=== PATIENT | male | born 1980 | race Hispanic/Latino ===

== ENCOUNTER 2017-07-05 11:30 | Emergency (ER) | payer SELFPAY ==
[2017-07-05] MEDS ORDERED: ZOFRAN IM ONE (12:12)
[2017-07-05] MEDS ORDERED: CARAFATE PO ONE (12:12)
--- NOTE | 2017-07-05 12:19 | XRay Report ---
ROUTINE CHEST, TWO VIEWS: HISTORY: Shortness of breath. The trachea, heart, mediastinal contour, lung lane and bony thorax are unremarkable. IMPRESSION: No acute cardiopulmonary process identified.
[2017-07-05] MEDS ORDERED: ZOFRAN IV ONE (12:30)
[2017-07-05 12:34] LABS: Basophils # (Auto) 0.1 K/mm3 (0.0-0.1); Basophils % (Auto) 0.4 % (0.0-1.8); Eosinophils % (Auto) 0.2 % (0.0-4.3); Hemoglobin 14.6 gm/dl (11.8-15.2); Lymphocytes # (Auto) 1.7 K/mm3 (1.2-5.4); Lymphocytes % (Auto) 10.9 % (13.4-35.0); Mean Corpuscular HGB Conc 34 % (32-34); Mean Corpuscular Hemoglobin 31 pg (28-32); Mean Corpuscular Volume 91 fl (84-94); Monocytes # (Auto) 0.5 K/mm3 (0.0-0.8); Monocytes % (Auto) 3.4 % (0.0-7.3); Platelet Count 302 K/mm3 (140-440); Red Blood Count 4.71 M/mm3 (3.65-5.03); Red Cell Distribution Width 14.9 % (13.2-15.2)
--- NOTE | 2017-07-05 12:36 | Emergency Department Report ---
ED General Adult HPI - General Chief complaint: Dyspnea/Respdistress Stated complaint: VOMITING/SOB Time Seen by Provider: 07/05/17 12:11 Source: patient Mode of arrival: Ambulatory Limitations: No Limitations - History of Present Illness Initial comments: Patient complains of nausea vomiting and diarrhea that started at 7:30 AM this morning. Patient states that after vomiting he has had a hard time catching his breath. Patient also complains of dental pain as well. Patient denies fever, chest pain, headache. -: Sudden Radiation: non-radiation Severity scale (0 -10): 0 Consistency: constant Improves with: none Worsens with: none Associated Symptoms: denies other symptoms Treatments Prior to Arrival: none - Related Data Previous Rx's Medication Instructions Recorded Last Taken Type Ondansetron [Zofran Odt] 4 mg PO Q6HR PRN #20 tab.rapdis 07/05/17 Unknown Rx Penicillin V Potassium 500 mg PO TID 10 Days #30 tablet 07/05/17 Unknown Rx Promethazine [Phenergan TAB] 25 mg PO Q8HR PRN #20 tab 07/05/17 Unknown Rx traMADol [Ultram] 50 mg PO Q6HR PRN #24 tablet 07/05/17 Unknown Rx Allergies Allergy/AdvReac Type Severity Reaction Status Date / Time No Known Allergies Allergy Unverified 07/05/17 11:50 ED Review of Systems ROS: Stated complaint: VOMITING/SOB Other details as noted in HPI Comment: All other systems reviewed and negative Constitutional: denies: chills, fever Eyes: denies: eye pain, eye discharge, vision change ENT: denies: ear pain, throat pain Respiratory: denies: cough, shortness of breath, wheezing Cardiovascular: denies: chest pain, palpitations Endocrine: no symptoms reported Gastrointestinal: abdominal pain, nausea, vomiting, diarrhea Genitourinary: denies: urgency, dysuria Musculoskeletal: denies: back pain, joint swelling, arthralgia Skin: denies: rash, lesions Neurological: denies: headache, weakness, paresthesias Psychiatric: denies: anxiety, depression Hematological/Lymphatic: denies: easy bleeding, easy bruising ED Past Medical Hx - Past Medical History Previous Medical History?: No - Surgical History Past Surgical History?: Yes Additional Surgical History: abd surgery as a child - Social History Smoking Status: Current Every Day Smoker Substance Use Type: Marijuana - Medications Home Medications: Home Medications Medication Instructions Recorded Confirmed Last Taken Type Ondansetron [Zofran Odt] 4 mg PO Q6HR PRN #20 tab.rapdis 07/05/17 Unknown Rx Penicillin V Potassium 500 mg PO TID 10 Days #30 tablet 07/05/17 Unknown Rx Promethazine [Phenergan TAB] 25 mg PO Q8HR PRN #20 tab 07/05/17 Unknown Rx traMADol [Ultram] 50 mg PO Q6HR PRN #24 tablet 07/05/17 Unknown Rx ED Physical Exam - General Limitations: No Limitations General appearance: alert, in no apparent distress - Head Head exam: Present: atraumatic, normocephalic - Eye Eye exam: Present: normal appearance - ENT ENT exam: Present: mucous membranes moist, other (multiple dental caries) - Neck Neck exam: Present: normal inspection - Respiratory Respiratory exam: Present: normal lung sounds bilaterally. Absent: respiratory distress, wheezes, rales, rhonchi - Cardiovascular Cardiovascular Exam: Present: regular rate, normal rhythm. Absent: systolic murmur, diastolic murmur, rubs, gallop - GI/Abdominal GI/Abdominal exam: Present: soft, tenderness (tender to palpation of the epigastric region), normal bowel sounds. Absent: distended - Rectal Rectal exam: Present: deferred - Extremities Exam Extremities exam: Present: normal inspection - Back Exam Back exam: Present: normal inspection - Neurological Exam Neurological exam: Present: alert, oriented X3, CN II-XII intact. Absent: motor sensory deficit - Psychiatric Psychiatric exam: Present: normal affect, normal mood - Skin Skin exam: Present: warm, dry, normal color ED Course Vital Signs 07/05/17 07/05/17 11:50 12:23 Temperature 98.5 F Pulse Rate 57 L Respiratory 18 15 Rate Blood Pressure 108/90 O2 Sat by Pulse 100 99 Oximetry ED Medical Decision Making - Lab Data Result diagrams: 07/05/17 12:14 07/05/17 12:14 - EKG Data -: EKG Interpreted by Ct EKG shows normal: sinus rhythm Rate: bradycardia - EKG Data Interpretation: no acute changes - Medical Decision Making On reexamination of the patient at 2 PM the patient states that his symptoms have completely resolved Discussed results with patient and plan of care Critical care attestation.: If time is entered above; I have spent that time in minutes in the direct care of this critically ill patient, excluding procedure time. ED Disposition Clinical Impression: Nausea vomiting and diarrhea, Dental caries, Abdominal pain Disposition: TO HOME OR SELFCARE Is pt being admited?: No Does the pt Need Aspirin: No Condition: Stable Instructions: Acute Abdominal Pain (ED), Acute Nausea and Vomiting (ED), Toothache (ED), Dental Caries (ED) Additional Instructions: Return is symptoms worsen Prescriptions: Ondansetron [Zofran Odt] 4 mg PO Q6HR PRN #20 tab.rapdis PRN Reason: Nausea Penicillin V Potassium 500 mg PO TID 10 Days #30 tablet Promethazine [Phenergan TAB] 25 mg PO Q8HR PRN #20 tab PRN Reason: Nausea traMADol [Ultram] 50 mg PO Q6HR PRN #24 tablet PRN Reason: Pain Referrals: PRIMARY CARE, [Primary Care Provider] - 3-5 Days SHYLA HYDE MD [Staff Physician] - 3-5 Days Time of Disposition: 14:15
[2017-07-05 12:55] LABS: Alanine Aminotransferase 11 units/L (7-56); Albumin 4.7 g/dL (3.9-5); BUN/Creatinine Ratio 11; Blood Urea Nitrogen 9 mg/dL (9-20); Calcium 9.9 mg/dL (8.4-10.2); Hemolysis Index 13
--- NOTE | 2017-07-05 13:11 | XRay Report ---
ABDOMEN, 2 views: History: Abdominal pain. There is no evidence of free air beneath the diaphragms. The gas pattern within the abdomen is unremarkable. There is no evidence of bowel dilatation, significant air-fluid levels, or pathologic calcifications. Organ shadows are unremarkable. IMPRESSION: Unremarkable abdomen.
[2017-07-05 15:03] VITALS: BP 102/65
== END 2017-07-05 15:31 | disposition home or self-care (01) ==
LOC: ED 11:30
DX: R11.2 Nausea with vomiting, unspecified (principal); R19.7 Diarrhea, unspecified; K02.9 Dental caries, unspecified; R10.13 Epigastric pain; F17.200 Nicotine dependence, unspecified, uncomplicated; F12.10 Cannabis abuse, uncomplicated
CPT/HCPCS: 36415; 71046; 74019; 80053; 83690; 85025; 93005; 93010; 96374; 99284; J2405